=== PATIENT | female | born 1995 | race Caucasian/White ===

== ENCOUNTER 2021-04-10 09:34 | Emergency (ER) | payer MEDICAID, SELFPAY ==
[~2021-04-10] VITALS: Ht 160 cm; Wt 67.1 kg
[2021-04-10 09:35] VITALS: BP_SYST 111
[2021-04-10] MEDS ORDERED: HYDR-3917 PO (11:24)
[2021-04-10] MEDS ORDERED: IBUP-1969 PO (11:24)
[2021-04-10] MEDS ORDERED: ALBU8.5H8 INH (11:33)
[2021-04-10] MEDS ORDERED: DIPH25TA62 PO (11:33)
== END 2021-04-10 11:39 | disposition home or self-care (01) ==
LOC: SED 09:34
DX: J98.01 Acute bronchospasm (principal); Z88.0 Allergy status to penicillin; Z79.899 Other long term (current) drug therapy; Z20.822 Contact with and (suspected) exposure to COVID-19
CPT/HCPCS: 36415; 71045; 99284